=== PATIENT | female | born 1965 | race Caucasian/White ===

== ENCOUNTER 2017-04-09 12:49 | Emergency (ER) | payer OTHER ==
[~2017-04-09] VITALS: Ht 170.2 cm; Wt 58.0 kg
[2017-04-09 12:52] VITALS: Ht 170.2 cm; Wt 58.0 kg
--- NOTE | 2017-04-09 17:26 | RADRPT ---
PROCEDURE: XR Chest. CLINICAL INDICATION: Dizziness TECHNIQUE: PA and lateral views of the chest were obtained COMPARISON: None FINDINGS: No pleural effusion or pneumothorax. No consolidation. Unremarkable cardiomediastinal silhouette. No acute osseous abnormality. IMPRESSION: No acute cardiopulmonary disease. RPTAT: QQ Marychuy Singh Physician Date Time Electronically viewed and signed by Marychuy Singh Physician on 04/09/2017 17:26 /
--- NOTE | 2017-04-09 17:26 | ERD ---
ER Documentation Chief Complaint Date/Time DATE: 04/09/17 TIME: 17:08 Chief Complaint fell on her left shoulder, possible dislocation HPI This is a 51-year-old female with a past medical history of migraines, sleep disturbance on Ambien 2-3 times per week who is presenting after a fall last night. The patient reports having difficulty sleeping last night, which is common for her. At 3 AM, she took Ambien to help her sleep. She started to drift off, but woke up at around 4 AM to go to the bathroom. She successfully went to the restroom and went to sit on the couch. She started to drift off on the couch while sitting and fell over on her left side. It was a fall from a seated position. She hit the hardwood floor. She hit her left shoulder in addition to the left side of her head. She did not lose consciousness. She remembers hitting the left side of her head. She endorses a left-sided mild to moderate headache in the morning, but this has since resolved. She reports feeling a little bit off presently, but has no focal deficits. She denies blurry vision or double vision. She does not describe lightheadedness or dizziness. She has no weakness or numbness or tingling to the face or extremities. The patient reports pain to her left shoulder anteriorly. She describes it as an aching sensation. She is able to range her shoulder fully, but there is pain with abduction. Her pulses are intact in that shoulder. Her sensation and strength are intact distal to the injury. There is no obvious deformity that she endorses. There is no redness or swelling. ROS All systems reviewed and are negative except as per history of present illness. Medications Home Meds No Active Prescriptions or Reported Meds Allergies Allergies: Coded Allergies: No Known Allergy (Unverified , 04/09/17) PMhx/Soc History of Surgery: Yes (appendectomy, L leg lipoma removal) Anesthesia Reaction: No Hx Neurological Disorder: No Hx Respiratory Disorders: No Hx Cardiac Disorders: No Hx Psychiatric Problems: No Hx Miscellaneous Medical Probl: No Hx Alcohol Use: No Hx Substance Use: No Hx Tobacco Use: No Smoking Status: Never smoker FmHx Family History: No diabetes Physical Exam Vitals Vital Signs Date Time Temp Pulse Resp B/P Pulse Ox O2 Delivery O2 Flow Rate FiO2 04/09/17 17:16 98.6 87 16 174/105 100 Room Air 04/09/17 12:52 98.7 85 20 153/101 97 Physical Exam Const: NAD, Well Developed, Well Nourished Head: Atraumatic Eyes: Normal Conjunctiva, EOMI, no visual deficits ENT: Normal External Ears, Nose and Mouth. Neck: Full range of motion. ~ No meningismus. Resp: Clear to auscultation bilaterally Cardio: Regular rate and rhythm, no murmurs Abd: Soft, non tender, non distended. Normal bowel sounds Skin: No petechiae or rashes Back: No midline or flank tenderness Ext: No cyanosis, or edema, full ROM of left shoulder, but pain with abduction, normal radial and DP pulses bilaterally Neur: Awake and alert, normal sensation, normal strength, normal coordination Psych: Normal Mood and Affect Result Diagram: 04/09/17 1730 04/09/17 1730 Results 24 hrs Laboratory Tests Test 04/09/17 17:30 White Blood Count 9.310^3/ul Red Blood Count 4.8610^6/ul Hemoglobin 14.8g/dl Hematocrit 44.3% Mean Corpuscular Volume 91.2fl Mean Corpuscular Hemoglobin 30.5pg Mean Corpuscular Hemoglobin Concent 33.4g/dl Red Cell Distribution Width 12.4% Platelet Count 85422^3/UL Mean Platelet Volume 8.2fl Neutrophils % 79.0% Lymphocytes % 14.3% Monocytes % 5.5% Eosinophils % 0.5% Basophils % 0.4% Nucleated Red Blood Cells % 0.0/100WBC Neutrophils # 7.310^3/ul Lymphocytes # 1.310^3/ul Monocytes # 0.510^3/ul Eosinophils # 0.110^3/ul Basophils # 0.010^3/ul Nucleated Red Blood Cells # 0.010^3/ul Sodium Level 142mmol/L Potassium Level 4.4mmol/L Chloride Level 101mmol/L Carbon Dioxide Level 29mmol/L Anion Gap 16 Blood Urea Nitrogen 5mg/dl Creatinine 0.67mg/dl Glucose Level 101mg/dl Calcium Level 10.4mg/dl Magnesium Level 1.9mg/dl Current Medications Medications (Trade) Dose Ordered Sig/Naty Route PRN Reason Start Time Stop Time Status Last Admin Dose Admin Ketorolac Tromethamine 15 mg 15 mg ONCE STAT IV 9/21/17 17:44 04/09/17 17:45 DC 04/09/17 18:30 Sodium Chloride (NS) 1,000 ml @ 1,000 mls/hr Q1H ONCE IV 04/09/17 19:00 04/09/17 19:59 Procedures/[facility] Patient's presentation warrants further investigation. The patient had a ground -level fall from a seated position. While she did hit her head, she did not lose consciousness and she has no focal deficits at this time. I have low suspicion for an intracranial post traumatic abnormality, and I do not feel a CT scan is warranted at this time. The patient does report feeling a little bit off. This could be an association with possible concussion that will require close follow-up. The patient does not endorse lightheadedness or dizziness. That said, she is hypertensive and had a fall last night. I will obtain basic blood work to evaluate for any metabolic derangement. I will also obtain an EKG and a chest x-ray. The patient also endorses left shoulder pain. I have low suspicion for a dislocation, but separation is possible. An x-ray of the shoulder will be obtained as well. LABS The patient's blood work was obtained and reviewed. The patient seemed shows no leukocytosis or left shift. The patient is afebrile, and I do not suspect a systemic infection. The patient is not anemic today. The patient's platelet count is unremarkable. The patient's CMP shows mild hypercalemia. She will be given IV fluids in the ER. There are no other signs of metabolic or electrolyte abnormality. The patient has normal renal and hepatic function testing. EKG EKG read by me: Rate/Rhythm: Regular rate and rhythm at a rate of 70 Intervals: Normal [place]: Normal Impression: No evidence of ischemia or arrhythmia IMAGING CXR FINDINGS: No pleural effusion or pneumothorax. No consolidation. Unremarkable cardiomediastinal silhouette. No acute osseous abnormality. MPRESSION: No acute cardiopulmonary disease. Electronically viewed and signed by Physician Lakisha on 04/09/2017 17 :26 L Shoulder XR IMPRESSION: Nondisplaced distal left clavicle fracture. No other fractures visualized Electronically viewed and signed by .Sammy Hernandez MD, MD on 04/09/2017 17:35 TREATMENT/DISPOSITION The patient had just taken Ambien, approximately 1 hour prior to becoming sleepy , almost falling asleep and falling off her couch. The patient's blood work was unremarkable, and I do not suspect a cardiac or metabolic abnormality as the cause of her symptoms at this time. The patient will be given IV fluids for a mildly elevated calcium. She was given Toradol for her left shoulder discomfort. The patient has a nonfocal exam, and I do not suspect a neurologic abnormality. Patient does have a nondisplaced left clavicle fracture. She will be placed in a sling. She may follow-up with orthopedics or her primary care doctor this week. She may take Tylenol or ibuprofen as needed for discomfort. This time, the patient is stable for discharge. She will be given precautions with which to return to the emergency department Departure Diagnosis: Primary Impression: Shoulder pain Chronicity: acute Laterality: left Qualified Code: M25.512 - Acute pain of left shoulder Additional Impressions: Concussion Encounter type: initial encounter Loss of consciousness presence/duration: without LOC Qualified Code: S06.0X0A - Concussion without loss of consciousness, initial encounter Closed left clavicular fracture Encounter type: initial encounter Clavicle location: lateral end Fracture alignment: nondisplaced Qualified Code: S42.035A - Closed nondisplaced fracture of acromial end of left clavicle, initial encounter Condition: Stable STACIE JANE MD Apr 09, 2017 17:19
--- NOTE | 2017-04-09 17:36 | RADRPT ---
PROCEDURE: Shoulder x-ray CLINICAL INDICATION: Pain TECHNIQUE: Left shoulder 3 views COMPARISON: None FINDINGS: 3 views of the left shoulder demonstrate nondisplaced distal clavicle fracture. The fracture cleft d oes not extend to the acromioclavicular articulation. The acromioclavicular articulation remains int act. No other fractures are seen. The humeral head articulates anatomically with the glenoid. The ralph reji normally mineralized. Soft tissues are unremarkable. IMPRESSION: 1. Nondisplaced distal left clavicle fracture. 2. No other fractures visualized RPTAT: HH .Sammy Hernandez MD, Date Time Electronically viewed and signed by .Sammy Hernandez MD, on 04/09/2017 17:35 .W/
[2017-04-09] MEDS ORDERED: KETOROLAC 15 MG INJ IV STA (17:44)
[2017-04-09 18:06] LABS: BASOPHILS % 0.4 % (0.0-2.0); EOSINOPHILS # 0.1 10^3/ul (0.0-0.5); EOSINOPHILS % 0.5 % (0.0-7.0); HEMATOCRIT 44.3 % (37.0-47.0); HEMOGLOBIN 14.8 g/dl (12.0-16.0); LYMPHOCYTES # 1.3 10^3/ul (0.8-2.9); LYMPHOCYTES % 14.3 % (15.0-51.0); MEAN CORPUSCULAR HEMOGLOBIN 30.5 pg (29.0-33.0); MEAN CORPUSCULAR HGB CONC 33.4 g/dl (32.0-37.0); MEAN CORPUSCULAR VOLUME 91.2 fl (82.0-101.0); MEAN PLATELET VOLUME 8.2 fl (7.4-10.4); MONOCYTE # 0.5 10^3/ul (0.3-0.9); MONOCYTES % 5.5 % (0.0-11.0); NEUTROPHIL # 7.3 10^3/ul (1.6-7.5); PLATELET COUNT 167 10^3/UL (140-415); RED BLOOD COUNT 4.86 10^6/ul (4.20-5.40); RED CELL DISTRIBUTION WIDTH 12.4 % (11.5-14.5); WHITE BLOOD COUNT 9.3 10^3/ul (4.8-10.8)
[2017-04-09 18:18] LABS: CALCIUM 10.4 mg/dl (8.4-10.2); CREATININE 0.67 mg/dl (0.44-1.00); MAGNESIUM 1.9 mg/dl (1.7-2.5); POTASSIUM 4.4 mmol/L (3.5-5.1)
[2017-04-09] MEDS ORDERED: SOD CHLORIDE 0.9% 1,000 ML IV ONE (19:00)
[2017-04-09 19:50] VITALS: BP 154/91; PULSE 87; RESP 16; TEMP 98.6
[2017-04-10] MEDS ORDERED: ONDA4TAB14 PO (13:46)
[2017-04-10] MEDS ORDERED: HYDR-902 PO (13:46)
== END 2017-04-09 19:58 | disposition home or self-care (01) ==
LOC: E/R 12:49
DX: S06.0X0A Concussion without loss of consciousness, initial encounter (principal); S42.035A Nondisplaced fracture of lateral end of left clavicle, initial encounter for closed fracture; R42 Dizziness and giddiness; W18.39XA Other fall on same level, initial encounter; Y92.9 Unspecified place or not applicable
CPT/HCPCS: 36415; 71020; 73030; 80048; 83735; 85025; 93005; 96374; J1885; J7030; Z7502

== ENCOUNTER 2017-04-10 13:01 | Emergency (ER) | payer OTHER ==
[~2017-04-10] VITALS: Wt 71.0 kg
[2017-04-10] MEDS ORDERED: ONDANSETRON (ODT) 4 MG TAB ODT STA (13:43)
[2017-04-10] MEDS ORDERED: HYDR-902 PO (13:46)
[2017-04-10] MEDS ORDERED: ONDA4TAB14 PO (13:46)
--- NOTE | 2017-04-10 13:56 | ERD ---
ER Documentation Chief Complaint Date/Time DATE: 04/10/17 TIME: 13:54 Chief Complaint "MEDICATION NOT STRONG ENOUGH" HPI Patient is a 51-year-old female with no medical problems who presents with left- sided shoulder pain. Yesterday she was seen in the emergency department for left shoulder dislocation and clavicle fracture. She was discharged home and was told to take Tylenol and Motrin for pain which she tried but it was not helping. Her primary doctor who she called his closed for the weekend so she could not see the primary doctor. Therefore she came to the ER. She is right- handed. ROS All systems reviewed and are negative except as per history of present illness. Medications Home Meds Active Scripts Ondansetron (Ondansetron Odt) 4 Mg Tab.rapdis, 4 MG PO Q6H Y for NAUSEA AND/OR VOMITING, #10 TAB Prov:ANDRÉS CORONA MD 04/10/17 Hydrocodone/Acetaminophen (Roosevelt 10-325 Tablet) 1 Each Tablet, 1 TAB PO Q6H Y for PAIN, #12 TAB Prov:ANDRÉS CORONA MD 04/10/17 Allergies Allergies: Coded Allergies: No Known Allergy (Unverified , 04/09/17) PMhx/Soc History of Surgery: Yes (appendectomy, L leg lipoma removal) Anesthesia Reaction: No Hx Neurological Disorder: No Hx Respiratory Disorders: No Hx Cardiac Disorders: No Hx Psychiatric Problems: No Hx Miscellaneous Medical Probl: No Hx Alcohol Use: No Hx Substance Use: No Hx Tobacco Use: No FmHx Family History: No diabetes Physical Exam Vitals Vital Signs Date Time Temp Pulse Resp B/P Pulse Ox O2 Delivery O2 Flow Rate FiO2 04/10/17 13:04 97.6 78 18 162/98 99 Physical Exam Const: Moderate distress secondary to pain Head: Atraumatic Eyes: Normal Conjunctiva ENT: Normal External Ears, Nose and Mouth. Neck: Full range of motion..~ No meningismus. Resp: Clear to auscultation bilaterally Cardio: Regular rate and rhythm, no murmurs Abd: Soft, non tender, non distended. Normal bowel sounds Skin: No petechiae or rashes Back: No midline or flank tenderness Ext: Left shoulder pain with palpation, patient is in a sling at this time Neur: Awake and alert Psych: Normal Mood and Affect Results 24 hrs Current Medications Medications (Trade) Dose Ordered Sig/Naty Route PRN Reason Start Time Stop Time Status Last Admin Dose Admin Acetaminophen/ Hydrocodone Bitart (Roosevelt (10/325)) 1 tab ONCE ONCE PO 04/10/17 14:00 04/10/17 14:01 Ondansetron HCl (Zofran Odt) 4 mg ONCE STAT ODT 04/10/17 13:43 04/10/17 13:44 DC Procedures/MDM Patient is a 51-year-old female presents with acute left shoulder and clavicle pain. She has a clavicle fracture that was diagnosed yesterday. She was not given any narcotic medicines. Therefore I do believe the patient would benefit from narcotic medicines at this time. She was given Roosevelt and Zofran in the emergency department. I will give her short course of Roosevelt and Zofran for symptomatically relief. She can follow-up with her primary doctor within 1 week. She can return for any worsening symptoms. There is no neurovascular injury at this time. Departure Diagnosis: Primary Impression: Fracture, clavicle Encounter type: subsequent encounter Clavicle location: unspecified part of clavicle Fracture type: closed Fracture alignment: nondisplaced Laterality : left Fracture healing: with routine healing Qualified Code: S42.002D - Closed nondisplaced fracture of left clavicle with routine healing, unspecified part of clavicle, subsequent encounter Condition: Fair Patient Instructions: Fracture, Clavicle Referrals: Your doctor Additional Instructions: Call your primary care doctor TOMORROW for an appointment during the next 1 WEEK.Tell the manager sas that you were referred from this facility.See the doctor sooner or return here if your condition worsens before your appointment time. ANDRÉS CORONA MD Apr 10, 2017 13:56
[2017-04-10] MEDS ORDERED: HYDROCODONE/APAP (10/325) TAB PO ONE (14:00)
== END 2017-04-10 14:06 | disposition home or self-care (01) ==
LOC: FTE 13:01
DX: S42.002A Fracture of unspecified part of left clavicle, initial encounter for closed fracture (principal); X58.XXXA Exposure to other specified factors, initial encounter; Y92.9 Unspecified place or not applicable
CPT/HCPCS: Z7502; Z7610; 99284

== ENCOUNTER 2018-03-03 08:34 | Emergency (ER) | END 2018-03-03 13:32 | disposition home or self-care (01) ==

== ENCOUNTER 2019-04-06 22:24 | Emergency (ER) | payer OTHER ==
[~2019-04-06] VITALS: Ht 170.2 cm; Wt 61.6 kg
[~2019-04-06 22:24] MED LIST: HYDR25TA6 PO
[2019-04-06 23:27] VITALS: BP 156/80; PULSE 64; RESP 16; Ht 170.2 cm; Wt 61.6 kg
[2019-04-07] MEDS ORDERED: DIPHTH/TET/ACEL PERTUSS (ADULT) 0.5 ML VIAL IM* ONE (01:30)
[2019-04-07] MEDS ORDERED: NAPROXEN 500 MG TAB PO ONE ×2 (02:00→02:30)
[2019-04-07] MEDS ORDERED: IBUPROFEN 800 MG TAB PO ONE (02:30)
== END 2019-04-07 02:30 | disposition home or self-care (01) ==
LOC: FTE 22:24
DX: S61.412A Laceration without foreign body of left hand, initial encounter (principal); W26.0XXA Contact with knife, initial encounter; Y92.9 Unspecified place or not applicable; Z23 Encounter for immunization
CPT/HCPCS: 90471; 90715; Z7502; Z7610